=== PATIENT | male | born 1995 | race Caucasian/White ===

== ENCOUNTER 2019-03-25 22:40 | Emergency (ER) | payer SELFPAY ==
[~2019-03-25] VITALS: Ht 165.1 cm; Wt 72.7 kg
[2019-03-25 22:43] VITALS: BP 147/77
== END 2019-03-26 00:45 | disposition left against medical advice (07) ==
LOC: EMS 22:42
DX: R07.9 Chest pain, unspecified (principal); Z53.21 Procedure and treatment not carried out due to patient leaving prior to being seen by health care provider

== ENCOUNTER 2020-02-11 09:29 | Emergency (ER) | payer MEDICAID ==
[~2020-02-11] VITALS: Ht 154.9 cm; Wt 70.5 kg
[2020-02-11] MEDS ORDERED: PERTUSS(ACELL),DIPH,TET VAC/PF 0.5 ML VIAL IM ONE (09:45)
[2020-02-11] MEDS ORDERED: ACETAMINOPHEN 325 MG TABLET PO ONE (10:30)
[2020-02-11] MEDS ORDERED: LIDOCAINE 1%/EPI 1:200,000/PF 10 ML VIAL INJ ONE (10:45)
[2020-02-11 13:07] VITALS: BP 117/45
== END 2020-02-11 14:03 | disposition short-term general hospital (02) ==
LOC: EMS 09:29
DX: S51.812A Laceration without foreign body of left forearm, initial encounter (principal); R20.0 Anesthesia of skin; Z20.828 Contact with and (suspected) exposure to other viral communicable diseases; W25.XXXA Contact with sharp glass, initial encounter; Y93.89 Activity, other specified; Y92.89 Other specified places as the place of occurrence of the external cause; Y99.8 Other external cause status
CPT/HCPCS: 73090; 87426; 90471; 90715; 99285; J3490

== ENCOUNTER 2021-01-05 15:14 | Emergency (ER) | payer MEDICAID ==
[~2021-01-05] VITALS: Ht 160 cm; Wt 77.3 kg
[2021-01-05] MEDS ORDERED: HYDROCODONE/ACETAMINOPHEN 5-325 MG TABLET PO ONE (17:00)
[2021-01-05] MEDS ORDERED: LIDOCAINE 1% 10 ML VIAL SQ ONE (18:30)
[2021-01-05] MEDS ORDERED: CEPHALEXIN MONOHYDRATE 500 MG CAPSULE PO ONE (19:15)
[2021-01-05 19:30] VITALS: BP 124/68
[2021-01-05] MEDS ORDERED: BACITRACIN 0.9 GM PACKET OINTMENT TP ONE (20:30)
== END 2021-01-05 22:10 | disposition home or self-care (01) ==
LOC: EMS 15:14
DX: S61.411A Laceration without foreign body of right hand, initial encounter (principal); S60.512A Abrasion of left hand, initial encounter; V19.9XXA Pedal cyclist (driver) (passenger) injured in unspecified traffic accident, initial encounter; Y93.89 Activity, other specified; Y92.89 Other specified places as the place of occurrence of the external cause; Y99.8 Other external cause status
CPT/HCPCS: 12002; 73130 ×2; 73562; 99284; J3490

== ENCOUNTER 2021-01-07 16:47 | Emergency (ER) | payer MEDICAID ==
[~2021-01-07] VITALS: Ht 162.6 cm; Wt 70.5 kg
[2021-01-07 21:00] VITALS: BP 119/61
== END 2021-01-07 21:36 | disposition home or self-care (01) ==
LOC: EMS 16:47
DX: S61.411D Laceration without foreign body of right hand, subsequent encounter (principal); X58.XXXD Exposure to other specified factors, subsequent encounter
CPT/HCPCS: 99283

== ENCOUNTER 2021-01-09 16:12 | Emergency (ER) | payer MEDICAID ==
[~2021-01-09] VITALS: Ht 154.9 cm; Wt 59.1 kg
[2021-01-09 20:30] VITALS: BP 117/80
== END 2021-01-09 20:46 | disposition home or self-care (01) ==
LOC: EDUNIT# 16:12 → EMS 16:17
DX: L08.9 Local infection of the skin and subcutaneous tissue, unspecified (principal); Z48.00 Encounter for change or removal of nonsurgical wound dressing
CPT/HCPCS: 99283; Z7502

== ENCOUNTER 2021-01-11 12:02 | Emergency (ER) | payer MEDICAID ==
[~2021-01-11] VITALS: Ht 154.9 cm; Wt 54.5 kg
[2021-01-11 13:36] VITALS: BP 105/69
== END 2021-01-11 13:45 | disposition home or self-care (01) ==
LOC: EMS 12:02
DX: S61.411D Laceration without foreign body of right hand, subsequent encounter (principal); V19.9XXD Pedal cyclist (driver) (passenger) injured in unspecified traffic accident, subsequent encounter
CPT/HCPCS: 99282; Z7502

== ENCOUNTER 2021-01-15 16:57 | Emergency (ER) | payer MEDICAID ==
[~2021-01-15] VITALS: Ht 162.6 cm; Wt 79.1 kg
[2021-01-15 17:07] VITALS: BP 115/64
== END 2021-01-15 17:32 | disposition home or self-care (01) ==
LOC: EMS 17:03
DX: S61.411D Laceration without foreign body of right hand, subsequent encounter (principal); Z48.02 Encounter for removal of sutures; F17.210 Nicotine dependence, cigarettes, uncomplicated; W45.8XXD Other foreign body or object entering through skin, subsequent encounter
CPT/HCPCS: 99281; Z7502